=== PATIENT | male | born 1940 | race Caucasian/White ===

== ENCOUNTER 2019-02-25 13:11 | Outpatient (CLI) | payer MEDICARE | END 2019-02-25 23:59 | disposition home or self-care (01) | LOC: RAD 13:11 | PROVIDERS: ATTEND Otolaryngology Plastic Surgery within the Head & Neck | DX: R13.12 Dysphagia, oropharyngeal phase (principal); R49.0 Dysphonia; K21.9 Gastro-esophageal reflux disease without esophagitis; Z85.89 Personal history of malignant neoplasm of other organs and systems; Z87.891 Personal history of nicotine dependence; Z79.899 Other long term (current) drug therapy | CPT/HCPCS: 74230 ==

== ENCOUNTER 2023-01-19 21:12 | Emergency (ER) | payer MEDICARE ==
[~2023-01-19] VITALS: Ht 188 cm; Wt 81.8 kg
[2023-01-19 21:51] VITALS: TEMP 98.1
[2023-01-19 22:44] LABS: BASOPHILS # (AUTO) 0.1 X10'3 (0-0.2); BASOPHILS % (AUTO) 0.9 % (0-1); EOSINOPHILS # (AUTO) 0.1 X10'3 (0-0.9); EOSINOPHILS % (AUTO) 0.8 % (0-6); HEMATOCRIT 33.9 % (42.0-52.0); HEMOGLOBIN 11.5 g/dl (14.0-17.9); LYMPHOCYTES # (AUTO) 0.6 X10'3 (1.1-4.8); LYMPHOCYTES % (AUTO) 6.2 % (21-51); MEAN CORPUSCULAR HEMOGLOBIN 31.5 PG (27.0-31.0); MEAN CORPUSCULAR VOLUME 92.5 FL (78-98); MEAN PLATELET VOLUME 9.1 FL (7.4-10.4); MONOCYTES # (AUTO) 0.5 X10'3 (0-0.9); MONOCYTES % (AUTO) 5.6 % (2-12); NEUTROPHILS % (AUTO) 86.5 % (42-75); PLATELET COUNT 164 X10'3 (140-440); RED BLOOD COUNT 3.67 X10'6 (4.70-6.10); RED CELL DISTRIBUTION WIDTH 13.5 % (11.5-14.5); WHITE BLOOD COUNT 9.3 X10'3 (4.5-11.0)
[2023-01-19 22:57] LABS: ALANINE AMINOTRANSFERASE 20 U/L (12-78); ALBUMIN 2.9 G/DL (3.4-5.0); ALBUMIN/GLOBULIN RATIO 0.9 (1.1-1.5); ALKALINE PHOSPHATASE 68 IU/L (46-116); ANION GAP 8 (8-16); ASPARTATE AMINO TRANSFERASE 50 U/L (10-37); BILIRUBIN,TOTAL 1.2 MG/DL (0.1-1.0); BLOOD UREA NITROGEN 51 MG/DL (7-18); BUN/CREATININE RATIO 36.2 (10.0-20.0); CALCIUM 8.2 MG/DL (8.5-10.1); CHLORIDE 94 MMOL/L (99-107); CREATININE 1.41 MG/DL (0.60-1.10); GLUCOSE 85 MG/DL (70-104); POTASSIUM 4.5 MMOL/L (3.5-5.1); SODIUM 129 MMOL/L (135-145); TOTAL CARBON DIOXIDE 27.4 MMOL/L (24-32); TOTAL PROTEIN 6.1 G/DL (6.4-8.2); eCRCL 46 ML/MIN; eGFR 48 ML/MIN
[2023-01-19 23:05] LABS: PRO BRAIN NATRIURETIC PEPTIDE 1244 PG/ML (0-450)
--- NOTE | 2023-01-20 02:23 | NUR ---
PTS SUKI CALLED, ALL QUESTIONS ANSWERED AND UPDATE PROVIDED. HER PHONE NUMBER FOR UPDATES [phone]
[2023-01-20] MEDS ORDERED: polyethylene glycol 3350 17gm powd pack PO SCH (03:15)
[2023-01-20 03:42] VITALS: BP 155/72; PULSE 70; RESP 16; O2SAT 99
== END 2023-01-20 03:45 | disposition home or self-care (01) ==
LOC: ER 21:13
DX: R06.02 Shortness of breath (principal)
CPT/HCPCS: 36415; 71045; 80053; 83880; 84484; 85025; 93005; 99285

== ENCOUNTER 2023-08-07 16:40 | Emergency (ER) | payer MEDICARE ==
[~2023-08-07] VITALS: Ht 185.4 cm; Wt 73.6 kg
[2023-08-07 17:09] VITALS: BP 139/46; PULSE 91; RESP 18; TEMP 98; O2SAT 98
[2023-08-07] MEDS ORDERED: AMO250L PO (17:32)
[2023-08-07] MEDS ORDERED: CIPR10DR RIGHT EAR (17:32)
== END 2023-08-07 17:44 | disposition home or self-care (01) ==
LOC: ER 16:41
DX: H60.91 Unspecified otitis externa, right ear (principal); I10 Essential (primary) hypertension; I25.10 Atherosclerotic heart disease of native coronary artery without angina pectoris; G89.29 Other chronic pain; Z85.9 Personal history of malignant neoplasm, unspecified
CPT/HCPCS: 99283

== ENCOUNTER 2024-02-17 10:42 | Outpatient (CLI) | payer MEDICARE ==
[2024-02-17 11:12] LABS: BASOPHILS % (AUTO) 0.5 % (0-1); EOSINOPHILS # (AUTO) 0.1 X10'3 (0-0.9); EOSINOPHILS % (AUTO) 1.8 % (0-6); HEMATOCRIT 35.5 % (42.0-52.0); HEMOGLOBIN 12.1 g/dl (14.0-17.9); LYMPHOCYTES # (AUTO) 0.6 X10'3 (1.1-4.8); LYMPHOCYTES % (AUTO) 14.2 % (21-51); MEAN CORPUSCULAR HEMOGLOBIN 34.4 PG (27.0-31.0); MEAN CORPUSCULAR VOLUME 101.1 FL (78-98); MEAN PLATELET VOLUME 9.5 FL (7.4-10.4); MONOCYTES # (AUTO) 0.3 X10'3 (0-0.9); MONOCYTES % (AUTO) 7.3 % (2-12); NEUTROPHILS # (AUTO) 3.4 X10'3 (1.8-7.7); NEUTROPHILS % (AUTO) 76.2 % (42-75); PLATELET COUNT 100 X10'3 (140-440); RED BLOOD COUNT 3.51 X10'6 (4.70-6.10); RED CELL DISTRIBUTION WIDTH 14.5 % (11.5-14.5); WHITE BLOOD COUNT 4.4 X10'3 (4.5-11.0)
[2024-02-17 11:25] LABS: APTT 28 SECONDS (22-32); INR 1.1 INR; PROTHROMBIN TIME 11.4 SECONDS (9.0-12.0)
[2024-02-17 11:33] LABS: ALANINE AMINOTRANSFERASE 16 U/L (12-78); ALBUMIN 3.9 G/DL (3.4-5.0); ALBUMIN/GLOBULIN RATIO 1.1 (1.1-1.5); ALKALINE PHOSPHATASE 68 IU/L (46-116); ANION GAP 4 (8-16); ASPARTATE AMINO TRANSFERASE 20 U/L (10-37); BILIRUBIN,TOTAL 1.1 MG/DL (0.1-1.0); BLOOD UREA NITROGEN 81 MG/DL (7-18); BUN/CREATININE RATIO 54.4 (10.0-20.0); CALCIUM 9.5 MG/DL (8.5-10.1); CHLORIDE 93 MMOL/L (99-107); CREATININE 1.49 MG/DL (0.60-1.10); GLUCOSE 127 MG/DL (70-104); POTASSIUM 3.9 MMOL/L (3.5-5.1); PRO BRAIN NATRIURETIC PEPTIDE 7816 PG/ML (0-450); SODIUM 133 MMOL/L (135-145); TOTAL CARBON DIOXIDE 35.7 MMOL/L (24-32); TOTAL PROTEIN 7.4 G/DL (6.4-8.2); eGFR 45 ML/MIN
[2024-02-17] MEDS ORDERED: IODIXANOL 320 MG/ML INFUS..BTL 100ML IV ONE (12:02)
[2024-03-23] MEDS ORDERED: LEVO125C4 GT (11:20)
[2024-03-23] MEDS ORDERED: FURO40TA4 GT (11:20)
[2024-03-23] MEDS ORDERED: LIOT5TAB10 GT (11:20)
== END 2024-02-17 23:59 | disposition home or self-care (01) ==
LOC: RAD 10:42
PROVIDERS: ATTEND Internal Medicine Cardiovascular Disease
DX: I35.0 Nonrheumatic aortic (valve) stenosis (principal); R06.02 Shortness of breath; I65.29 Occlusion and stenosis of unspecified carotid artery; I51.7 Cardiomegaly; M47.815 Spondylosis without myelopathy or radiculopathy, thoracolumbar region; I70.0 Atherosclerosis of aorta; M41.85 Other forms of scoliosis, thoracolumbar region; Z90.49 Acquired absence of other specified parts of digestive tract; Z95.1 Presence of aortocoronary bypass graft; K56.41 Fecal impaction
CPT/HCPCS: 36415; 71275; 74174; 75572; 80053; 83880; 85025; 85610; 85730; Q9967

== ENCOUNTER 2024-03-26 08:37 | Inpatient (IN) | payer MEDICARE ==
[2024-03-23 11:44] LABS: BASOPHILS % (AUTO) 0.7 % (0-1); EOSINOPHILS # (AUTO) 0.1 X10'3 (0-0.9); EOSINOPHILS % (AUTO) 1.6 % (0-6); LYMPHOCYTES # (AUTO) 0.4 X10'3 (1.1-4.8); LYMPHOCYTES % (AUTO) 11.4 % (21-51); MEAN CORPUSCULAR HEMOGLOBIN 35.5 PG (27.0-31.0); MEAN CORPUSCULAR HGB CONC 35.5 g/dL (33.0-36.5); MONOCYTES # (AUTO) 0.3 X10'3 (0-0.9); MONOCYTES % (AUTO) 8.2 % (2-12); NEUTROPHILS % (AUTO) 78.1 % (42-75); PRE OP HEMATOCRIT 33.2 % (42.0-52.0); PRE OP HEMOGLOBIN 11.8 g/dL (14.0-17.9); PRE OP PLATELET COUNT 118 X10'3 (140-440); PRE OP WHITE BLOOD COUNT 3.9 10'3 (4.8-10.8); RED BLOOD COUNT 3.32 X10'6 (4.70-6.10)
[2024-03-23 12:05] LABS: PRE OP INR 1.1 INR; PRE OP PROTIME 11.4 SECONDS (9.0-12.0)
[2024-03-23 12:09] LABS: ALBUMIN/GLOBULIN RATIO 1.1 (1.1-1.5); ALKALINE PHOSPHATASE 71 IU/L (46-116); BLOOD UREA NITROGEN 76 MG/DL (7-18); BUN/CREATININE RATIO 55.9 (10.0-20.0); CALCIUM 9.5 MG/DL (8.5-10.1); CHLORIDE 90 MMOL/L (99-107); CREATININE 1.36 MG/DL (0.60-1.10); PRE OP ALT 19 U/L (30-65); PRE OP ANION GAP 6 (8-16); PRE OP AST 26 U/L (10-37); PRE OP BILIRUB, TOTAL 1.1 MG/DL (0.0-1.0); PRE OP GLUCOSE 95 MG/DL (70-104); PRE OP POTASSIUM 3.8 MMOL/L (3.4-5.1); PRO BRAIN NATRIURETIC PEPTIDE 12850 PG/ML (0-450); TOTAL CARBON DIOXIDE 33.7 MMOL/L (24-32); TOTAL PROTEIN 7.5 G/DL (6.4-8.2); eGFR 50 ML/MIN
[2024-03-23 12:22] LABS: PRE OP SODIUM 130 MMOL/L (135-145)
[2024-03-23 14:54] LABS: BILIRUBIN,URINE NEGATIVE (Neg); CLARITY,URINE CLOUDY (Clear); COLOR,URINE YELLOW (Yellow); GLUCOSE, URINE NEGATIVE (Neg); KETONES,URINE NEGATIVE (Neg); LEUKOCYTE ESTERASE ,URINE MODERATE (Neg); NITRITES, URINE NEGATIVE (Neg); OCCULT BLOOD,URINE TRACE-INTACT (Neg); PH,URINE 6.5 (4.8-8.0); PROTEIN,URINE 30 mg/dl (Neg); UROBILINOGEN,URINE 0.2 E.U/dL (0.2-1.0)
[2024-03-23 15:02] LABS: UA COLLECTION TYPE NON-SPECIFIED
[2024-03-23 15:06] LABS: SQUAMOUS EPITHELIAL CELL,UR FEW /LPF (FEW); WBC CLUMPS,URINE FEW /HPF (NEGATIVE)
[2024-03-23 15:07] LABS: BACTERIA,URINE 3+ /HPF (Neg); WBC,URINE TNTC /HPF (0-4)
[~2024-03-26] VITALS: Ht 188 cm; Wt 76.0 kg
[2024-03-26] VITALS (19 sets, daily range): BP systolic 95–173; BP diastolic 58–102; PULSE 66–88; RESP 9–18; TEMP 97.3–98.5; O2SAT 93–100
[2024-03-26] MEDS: ringers solution, lacted 1,000 ML IV SCH (05:30)
[~2024-03-26 08:37] MED LIST: FURO40TA4 GT; LEVO125C4 GT; LIOT5TAB10 GT; ondansetron/PF 4mg/2ml inj IV PRN; protamine sulfate 10mg/ml inj. ONE
[2024-03-26] MEDS: nitroPRUSSIDE (NIPRIDE) (200MCG/ML) 100ML Drip IV SCH (09:57)
[2024-03-26] MEDS: ceFAZolin 2gm in dextrose, iso 50 ML IV ONE (09:57)
[2024-03-26] MEDS: VANCOMYCIN 1,500MG inj. 1,500 MG in normal saline 500ml IV soln 300 ML IV ONE (09:58)
[2024-03-26] MEDS: aspirin 325mg tablet PEG ONE (09:58)
[2024-03-26] MEDS: famotidine 20mg tablet PEG ONE (09:58)
[2024-03-26] MEDS: phenylephrine inj 50 MG in normal saline 250ml IV solN IV SCH (09:58)
[2024-03-26 10:20] LABS: ISTAT CREATININE 1.4 mg/dL (0.8-1.3); ISTAT HGB 11.2 g/dl (14.0-17.9); ISTAT IONIZED CALCIUM 1.25 mmol/L (1.03-1.32); ISTAT K 3.9 mmol/L (3.5-5.1); POC BUN/CREATININE RATIO 49.3 (5.4-32.0)
[2024-03-26] MEDS ORDERED: heparin 1,000 UNITS/NS 500ml 1,500 ML ONE (11:32)
[2024-03-26] MEDS ORDERED: iohexol 350MG/ML 100ml bottle IV ONE (11:32)
[2024-03-26] MEDS ORDERED: LIDOcaine 1% (10mg/ml) 2ml vial ONE (11:34)
[2024-03-26] MEDS ORDERED: sevoflurane 250ml liquid IH ONE (11:58)
[2024-03-26] MEDS ORDERED: fentaNYL/PF 50MCG/1 ML 2ML syringe ONE (12:06)
[2024-03-26] MEDS: protamine sulf. 10mg/ml inj. IV ONE (12:18)
[2024-03-26] MEDS ORDERED: heparin 1,000unit/ml 10ml vial 10 ML ONE (12:44)
[2024-03-26] MEDS ORDERED: propofol inj 20 ML IV ONE (12:44)
[2024-03-26] MEDS ORDERED: potassium Cl 20mEq/100mL bag 100 ML IV PRN (13:20)
[2024-03-26] MEDS ORDERED: potassium Cl 20 mEq SR tablet PO PRN (13:20)
[2024-03-26] MEDS ORDERED: potassium Cl 40MEQ/1/2NS 520ml 520 ML IV PRN (13:20)
[2024-03-26] MEDS ORDERED: potassium CL 10mEq/100ml bag 100 ML IV PRN (13:20)
[2024-03-26] MEDS ORDERED: HYDROcodone/acetaminophen 5mg/325mg tablet PO PRN (13:20)
[2024-03-26] MEDS ORDERED: acetaminophen 325mg tablet PO PRN (13:20)
[2024-03-26] MEDS ORDERED: pantoprazole 40mg Tablet.DR PO PRN (13:20)
[2024-03-26] MEDS ORDERED: labetalol 20mg/4ml (5mg/ml) syringe IV PRN (13:20)
[2024-03-26] MEDS ORDERED: ALPRAZolam 0.25mg tablet PO PRN (13:20)
[2024-03-26] MEDS ORDERED: proCHLORperazine 10 MG/2 ml inj IV PRN (13:20)
[2024-03-26] MEDS ORDERED: docusate sod 100mg capsule PO PRN (13:20)
[2024-03-26] MEDS ORDERED: potassium Cl 40MEQ/270ML bag 250 ML IV PRN (13:20)
[2024-03-26] MEDS ORDERED: ondansetron/PF 4mg/2ml inj IV PRN (13:20)
[2024-03-26] MEDS ORDERED: diphenhydrAMINE 25mg capsule PO PRN (13:20)
[2024-03-26] MEDS ORDERED: magnesium sulf-water 4G/100mL 100 ML IV PRN (13:20)
[2024-03-26] MEDS ORDERED: magnesium sulf-water 2g/50mL 50 ML IV PRN (13:20)
[2024-03-26] MEDS ORDERED: hydrALAZINE 20mg/ml inj. IV PRN (14:05)
[2024-03-26] MEDS ORDERED: labetalol 5mg/ml 20ml inj. IV PRN (14:05)
[2024-03-26] MEDS: hydrALAZINE 20mg/ml inj. IV PRN (14:05)
[2024-03-26] MEDS: ceFAZolin 1GM/D5W- ADD-VANTAGE 50 ML IV SCH (16:51)
[2024-03-26] MEDS: sod chloride 0.9% 10ml flush syringe IV SCH (16:51)
[2024-03-26] MEDS: normal saline 1000ml 1,000 ML IV SCH (16:52)
[2024-03-26] MEDS: VANCOMYCIN 1GM 200ML H20 (PEG) 200 ML IV SCH (21:40)
[2024-03-27 02:00] VITALS: BP 154/84; PULSE 77; RESP 14; TEMP 97.7; O2SAT 96
[2024-03-27 07:57] LABS: ALANINE AMINOTRANSFERASE 13 U/L (12-78); ALKALINE PHOSPHATASE 56 IU/L (46-116); ANION GAP 1 (8-16); ASPARTATE AMINO TRANSFERASE 21 U/L (10-37); BILIRUBIN,TOTAL 0.9 MG/DL (0.1-1.0); BLOOD UREA NITROGEN 54 MG/DL (7-18); BUN/CREATININE RATIO 42.9 (10.0-20.0); CALCIUM 8.3 MG/DL (8.5-10.1); CHLORIDE 94 MMOL/L (99-107); CREATININE 1.26 MG/DL (0.60-1.10); GLUCOSE 83 MG/DL (70-104); PRO BRAIN NATRIURETIC PEPTIDE 13203 PG/ML (0-450); SODIUM 129 MMOL/L (135-145); TOTAL CARBON DIOXIDE 33.8 MMOL/L (24-32); eCRCL 46 ML/MIN; eGFR 54 ML/MIN
[2024-03-27 08:00] VITALS: RESP 16; O2SAT 94
[2024-03-27 08:10] LABS: BASOPHILS % (AUTO) 0.7 % (0-1); EOSINOPHILS # (AUTO) 0.1 X10'3 (0-0.9); EOSINOPHILS % (AUTO) 2.7 % (0-6); HEMATOCRIT 26.5 % (42.0-52.0); HEMOGLOBIN 9.5 g/dl (14.0-17.9); LYMPHOCYTES # (AUTO) 0.3 X10'3 (1.1-4.8); LYMPHOCYTES % (AUTO) 6.5 % (21-51); MEAN CORPUSCULAR HEMOGLOBIN 35.8 PG (27.0-31.0); MEAN CORPUSCULAR HGB CONC 35.8 g/dL (33.0-36.5); MEAN PLATELET VOLUME 8.9 FL (7.4-10.4); MONOCYTES # (AUTO) 0.4 X10'3 (0-0.9); MONOCYTES % (AUTO) 8.5 % (2-12); NEUTROPHILS # (AUTO) 3.8 X10'3 (1.8-7.7); NEUTROPHILS % (AUTO) 81.6 % (42-75); PLATELET COUNT 82 X10'3 (140-440); RED BLOOD COUNT 2.65 X10'6 (4.70-6.10); RED CELL DISTRIBUTION WIDTH 14.2 % (11.5-14.5); WHITE BLOOD COUNT 4.7 X10'3 (4.5-11.0)
[2024-03-27] MEDS: aspirin 81mg tab.chew PO SCH (09:04)
[2024-03-27] MEDS ORDERED: ASPI81TA53 PO (15:12)
== END 2024-03-27 16:52 | disposition home or self-care (01) | DRG 266 ==
LOC: PAS IN 08:37 → PCU 3S 15:30
PROVIDERS: ADMIT Internal Medicine Cardiovascular Disease; ATTEND Internal Medicine Cardiovascular Disease
PROC: B41F1ZZ Fluoroscopy of Right Lower Extremity Arteries using Low Osmolar Contrast (ICD-10-PCS; 2024-03-26)
PROC: B41G1ZZ Fluoroscopy of Left Lower Extremity Arteries using Low Osmolar Contrast (ICD-10-PCS; 2024-03-26)
PROC: 02RF38Z Replacement of Aortic Valve with Zooplastic Tissue, Percutaneous Approach (ICD-10-PCS; principal; 2024-03-26 11:58)
DX: I35.2 Nonrheumatic aortic (valve) stenosis with insufficiency (principal); Z00.6 Encounter for examination for normal comparison and control in clinical research program; I50.33 Acute on chronic diastolic (congestive) heart failure; I11.0 Hypertensive heart disease with heart failure; Z88.8 Allergy status to other drugs, medicaments and biological substances
CPT/HCPCS: 33361; 36415; 71045; 71046; 76937; 80047; 80053; 81001; 83735; 83880; 84439; 84443; 85025; 85347; 85610; 85730; 86885; 86900; 86901; 86920; 87077; 87081; 87088; 87186; 93005; 93308; A4615; A4618; A6213; A6250; A6258; A6449; A6590; C1756; C1760; C1769; C1894; G0378; J0360; J0690; J1644; J2003; J2371; J2704; J2720; J3010; J3370; J3372; J3490; J7030; J7040; J7050; J7120; Q9967

== ENCOUNTER 2024-04-13 15:13 | Outpatient (CLI) | payer MEDICARE ==
[~2024-04-13 15:13] MED LIST changes: +ASPI81TA53 PO; -ondansetron/PF 4mg/2ml inj IV PRN; -protamine sulfate 10mg/ml inj. ONE
[2024-04-13 15:53] LABS: BASOPHILS % (AUTO) 0.5 % (0-1); EOSINOPHILS # (AUTO) 0.1 X10'3 (0-0.9); EOSINOPHILS % (AUTO) 1.4 % (0-6); HEMOGLOBIN 9.9 g/dl (14.0-17.9); LYMPHOCYTES # (AUTO) 0.5 X10'3 (1.1-4.8); LYMPHOCYTES % (AUTO) 15.6 % (21-51); MEAN CORPUSCULAR HEMOGLOBIN 36.1 PG (27.0-31.0); MEAN CORPUSCULAR HGB CONC 35.5 g/dL (33.0-36.5); MEAN CORPUSCULAR VOLUME 101.7 FL (78-98); MEAN PLATELET VOLUME 8.7 FL (7.4-10.4); MONOCYTES # (AUTO) 0.3 X10'3 (0-0.9); MONOCYTES % (AUTO) 8.1 % (2-12); NEUTROPHILS # (AUTO) 2.6 X10'3 (1.8-7.7); NEUTROPHILS % (AUTO) 74.4 % (42-75); PLATELET COUNT 98 X10'3 (140-440); RED BLOOD COUNT 2.75 X10'6 (4.70-6.10); RED CELL DISTRIBUTION WIDTH 15.2 % (11.5-14.5); WHITE BLOOD COUNT 3.5 X10'3 (4.5-11.0)
[2024-04-13 16:06] LABS: APTT 28 SECONDS (22-32); INR 1.1 INR; PROTHROMBIN TIME 11.8 SECONDS (9.0-12.0)
[2024-04-13 16:17] LABS: ALANINE AMINOTRANSFERASE 11 U/L (12-78); ALBUMIN 3.9 G/DL (3.4-5.0); ALKALINE PHOSPHATASE 84 IU/L (46-116); ANION GAP 5 (8-16); ASPARTATE AMINO TRANSFERASE 24 U/L (10-37); BLOOD UREA NITROGEN 55 MG/DL (7-18); CALCIUM 8.8 MG/DL (8.5-10.1); CHLORIDE 96 MMOL/L (99-107); CREATININE 1.28 MG/DL (0.60-1.10); FREE T4 (FREE THYROXINE) 0.89 NG/DL (0.73-1.40); GLUCOSE 106 MG/DL (70-104); POTASSIUM 4.2 MMOL/L (3.5-5.1); SODIUM 134 MMOL/L (135-145); THYROID STIMULATING HORMONE 24.82 ulU/ml (0.34-4.50); TOTAL CARBON DIOXIDE 32.6 MMOL/L (24-32); TOTAL PROTEIN 7.7 G/DL (6.4-8.2); eGFR 53 ML/MIN
== END 2024-04-13 23:59 | disposition home or self-care (01) ==
LOC: LAB 15:13
PROVIDERS: ATTEND Internal Medicine Cardiovascular Disease
DX: I50.9 Heart failure, unspecified (principal); N28.9 Disorder of kidney and ureter, unspecified; E87.1 Hypo-osmolality and hyponatremia; R79.1 Abnormal coagulation profile; D64.9 Anemia, unspecified; D61.818 Other pancytopenia; E63.9 Nutritional deficiency, unspecified
CPT/HCPCS: 36415; 80053; 84439; 84443; 85025; 85610; 85730

== ENCOUNTER 2024-05-11 23:50 | Inpatient (IN) | payer MEDICARE ==
[~2024-05-11] VITALS: Ht 185.4 cm; Wt 78.5 kg
[2024-05-12 00:24] LABS: EOSINOPHILS # (AUTO) 0.1 X10'3 (0-0.9); EOSINOPHILS % (AUTO) 1.5 % (0-6); HEMOGLOBIN 11.7 g/dl (14.0-17.9); LYMPHOCYTES # (AUTO) 0.9 X10'3 (1.1-4.8); MEAN CORPUSCULAR HGB CONC 35.5 g/dL (33.0-36.5); MEAN CORPUSCULAR VOLUME 101.6 FL (78-98); MONOCYTES # (AUTO) 0.3 X10'3 (0-0.9); NEUTROPHILS # (AUTO) 3.7 X10'3 (1.8-7.7); RED CELL DISTRIBUTION WIDTH 13.9 % (11.5-14.5)
[2024-05-12 00:26] LABS: BASOPHILS % (AUTO) 0.3 % (0-1); HEMATOCRIT 33.1 % (42.0-52.0); LYMPHOCYTES % (AUTO) 17.9 % (21-51); MEAN PLATELET VOLUME 9.5 FL (7.4-10.4); MONOCYTES % (AUTO) 6.1 % (2-12); NEUTROPHILS % (AUTO) 74.2 % (42-75); PLATELET COUNT 75 X10'3 (140-440); RED BLOOD COUNT 3.25 X10'6 (4.70-6.10)
[2024-05-12 00:41] LABS: ALANINE AMINOTRANSFERASE 17 U/L (12-78); ALBUMIN 3.9 G/DL (3.4-5.0); ALKALINE PHOSPHATASE 98 IU/L (46-116); ANION GAP 8 (8-16); ASPARTATE AMINO TRANSFERASE 26 U/L (10-37); BILIRUBIN,TOTAL 0.9 MG/DL (0.1-1.0); BLOOD UREA NITROGEN 56 MG/DL (7-18); BUN/CREATININE RATIO 44.4 (10.0-20.0); CALCIUM 9.4 MG/DL (8.5-10.1); CHLORIDE 93 MMOL/L (99-107); CREATININE 1.26 MG/DL (0.60-1.10); GLUCOSE 111 MG/DL (70-104); POTASSIUM 4.5 MMOL/L (3.5-5.1); SODIUM 128 MMOL/L (135-145); TOTAL CARBON DIOXIDE 27.1 MMOL/L (24-32); TOTAL PROTEIN 7.7 G/DL (6.4-8.2); eCRCL 45 ML/MIN; eGFR 54 ML/MIN
[2024-05-12 00:48] LABS: PRO BRAIN NATRIURETIC PEPTIDE 5347 PG/ML (0-450)
[2024-05-12] MEDS ORDERED: NO HOME MEDS (01:15)
[2024-05-12] MEDS: aspirin 325mg tablet PO ONE (05:04)
[2024-05-12 05:14] LABS: FREE T4 (FREE THYROXINE) 1.01 NG/DL (0.73-1.40); THYROID STIMULATING HORMONE 5.41 ulU/ml (0.34-4.50)
[2024-05-12] MEDS ORDERED: potassium Cl 20 mEq SR tablet PO PRN ×2 (06:10)
[2024-05-12] MEDS ORDERED: ondansetron/PF 4mg/2ml inj IV PRN (06:10)
[2024-05-12] MEDS ORDERED: magnesium Cl slow-release 64mg tablet PO PRN (06:10)
[2024-05-12] MEDS ORDERED: magnesium hydroxide 30ml (MOM) UD suspension PO PRN (06:10)
[2024-05-12] MEDS ORDERED: acetaminophen 325mg tablet PO PRN (06:10)
[2024-05-12] MEDS ORDERED: magnesium sulf-water 4G/100mL 100 ML IV PRN (06:10)
[2024-05-12] MEDS ORDERED: potassium Cl 40MEQ/1/2NS 520ml 520 ML IV PRN (06:10)
[2024-05-12] MEDS ORDERED: mag hydrox/Alum hydrox/simeth 30ml oral suspension PO PRN (06:10)
[2024-05-12] MEDS ORDERED: magnesium sulf-water 2g/50mL 50 ML IV PRN (06:10)
[2024-05-12] MEDS: normal saline 1000ml 1,000 ML IV SCH (06:25)
[2024-05-12 07:58] LABS: MAGNESIUM 1.9 MG/DL (1.5-2.4); POTASSIUM 4.2 MMOL/L (3.5-5.1)
[2024-05-12] MEDS: K and/or MAG REPLACEMENT MC SCH (08:00)
[2024-05-12] MEDS: docusate sod 100mg capsule PO SCH (08:00)
[2024-05-12] MEDS: cyanocobalamin 500mcg tablet PO SCH (08:56)
[2024-05-12] MEDS: liothyronine sod 5mcg tablet PO SCH (08:56)
[2024-05-12] MEDS: levoTHYROXINE 112mcg tablet PO SCH (08:56)
[2024-05-12] MEDS: folic acid 1mg tablet PO ONE (08:56)
[2024-05-12] MEDS: levoTHYROXINE 25mcg tablet PO SCH (08:56)
[2024-05-12] MEDS: carVEDilol 3.125mg tablet PO SCH (11:55)
[2024-05-12 18:00] VITALS: BP_SYST 135; BP_SYST 91; BP_DIAS 64; BP_DIAS 86; PULSE 74; PULSE 77; RESP 14; TEMP 97.6; TEMP 97.9; O2SAT 95; O2SAT 97
[2024-05-12 20:00] VITALS: RESP 18; O2SAT 96
[2024-05-12 22:00] VITALS: BP 130/84; PULSE 81; RESP 16; TEMP 98; O2SAT 95
[2024-05-13 02:00] VITALS: BP 130/80; PULSE 74; RESP 16; TEMP 97; O2SAT 97
[2024-05-13 06:54] LABS: BASOPHILS % (AUTO) 0.8 % (0-1); EOSINOPHILS # (AUTO) 0.1 X10'3 (0-0.9); HEMATOCRIT 29.9 % (42.0-52.0); HEMOGLOBIN 10.6 g/dl (14.0-17.9); LYMPHOCYTES # (AUTO) 0.6 X10'3 (1.1-4.8); LYMPHOCYTES % (AUTO) 18.8 % (21-51); MEAN CORPUSCULAR HEMOGLOBIN 36.4 PG (27.0-31.0); MEAN CORPUSCULAR HGB CONC 35.6 g/dL (33.0-36.5); MEAN CORPUSCULAR VOLUME 102.5 FL (78-98); MEAN PLATELET VOLUME 9.2 FL (7.4-10.4); MONOCYTES # (AUTO) 0.3 X10'3 (0-0.9); MONOCYTES % (AUTO) 11.1 % (2-12); NEUTROPHILS % (AUTO) 67.3 % (42-75); PLATELET COUNT 85 X10'3 (140-440); RED BLOOD COUNT 2.91 X10'6 (4.70-6.10); RED CELL DISTRIBUTION WIDTH 13.7 % (11.5-14.5)
[2024-05-13 07:00] VITALS: BP 131/79; PULSE 73; RESP 18; TEMP 97.8; O2SAT 97
[2024-05-13 07:22] LABS: ALANINE AMINOTRANSFERASE 12 U/L (12-78); ALBUMIN 2.8 G/DL (3.4-5.0); ALBUMIN/GLOBULIN RATIO 0.9 (1.1-1.5); ALKALINE PHOSPHATASE 70 IU/L (46-116); ANION GAP 6 (8-16); ASPARTATE AMINO TRANSFERASE 24 U/L (10-37); BILIRUBIN,TOTAL 0.6 MG/DL (0.1-1.0); BLOOD UREA NITROGEN 42 MG/DL (7-18); BUN/CREATININE RATIO 37.8 (10.0-20.0); CALCIUM 8.8 MG/DL (8.5-10.1); CHLORIDE 98 MMOL/L (99-107); CREATININE 1.11 MG/DL (0.60-1.10); GLUCOSE 92 MG/DL (70-104); POTASSIUM 4.5 MMOL/L (3.5-5.1); SODIUM 133 MMOL/L (135-145); TOTAL CARBON DIOXIDE 29.2 MMOL/L (24-32); eCRCL 51 ML/MIN; eGFR 63 ML/MIN
[2024-05-13 08:00] VITALS: RESP 18; O2SAT 97
[2024-05-13] MEDS ORDERED: carVEDilol 3.125mg tablet PEG SCH (08:21)
[2024-05-13] MEDS ORDERED: acetaminophen 325mg tablet PEG PRN (08:21)
[2024-05-13] MEDS ORDERED: cyanocobalamin 500mcg tablet PEG SCH (08:21)
[2024-05-13 11:00] VITALS: BP 128/81; PULSE 79; RESP 18; TEMP 96.8; O2SAT 98
[2024-05-13] MEDS: hydrALAZINE 20mg/ml inj. IV PRN (11:48)
[2024-05-13] MEDS ORDERED: CARV-164 PEG (12:27)
[2024-05-13] MEDS ORDERED: piperacillin/tazo 3.375gm/50ml 50 ML IV SCH (16:00)
[2024-05-13] MEDS ORDERED: vancomycin/NS 1 GM ADD-VANTAGE 250 ML IV SCH (16:00)
[2024-05-16] MEDS ORDERED: VANCOMYCIN LEVEL IV ONE (15:30)
== END 2024-05-13 15:50 | disposition home health service (06) | DRG 280 ==
LOC: ER 23:51 → ED HOLD 05-12 06:14 → PCU 3S 05-12 18:07
PROVIDERS: ADMIT Internal Medicine Sleep Medicine; ATTEND Family Medicine
DX: I16.1 Hypertensive emergency (principal); G93.41 Metabolic encephalopathy; I21.A1 Myocardial infarction type 2; N17.0 Acute kidney failure with tubular necrosis; N39.0 Urinary tract infection, site not specified; D50.8 Other iron deficiency anemias; N18.9 Chronic kidney disease, unspecified; E03.9 Hypothyroidism, unspecified; I12.9 Hypertensive chronic kidney disease with stage 1 through stage 4 chronic kidney disease, or unspecified chronic kidney disease; I25.10 Atherosclerotic heart disease of native coronary artery without angina pectoris; N40.0 Benign prostatic hyperplasia without lower urinary tract symptoms; Z88.8 Allergy status to other drugs, medicaments and biological substances
CPT/HCPCS: 36415; 71045; 80053; 83735; 83880; 83930; 84132; 84439; 84443; 84484; 85025; 85379; 87081; 93005; 93308; 93970; 99285; A4349; A6213; A6402; A6590; G0378; J0360; J7030

== ENCOUNTER 2024-06-09 19:38 | Inpatient (IN) | payer MEDICARE ==
[~2024-06-09] VITALS: Ht 188 cm; Wt 77.0 kg
[~2024-06-09 19:38] MED LIST changes: -ASPI81TA53 PO; +CARV-164 PEG; -FURO40TA4 GT; -LEVO125C4 GT; -LIOT5TAB10 GT; +NO HOME MEDS
[2024-06-09 20:01] LABS: BASOPHILS % (AUTO) 0.4 % (0-1); EOSINOPHILS # (AUTO) 0.1 X10'3 (0-0.9); EOSINOPHILS % (AUTO) 0.8 % (0-6); HEMATOCRIT 34.2 % (42.0-52.0); HEMOGLOBIN 11.9 g/dl (14.0-17.9); LYMPHOCYTES # (AUTO) 0.6 X10'3 (1.1-4.8); LYMPHOCYTES % (AUTO) 8.3 % (21-51); MEAN CORPUSCULAR HEMOGLOBIN 34.9 PG (27.0-31.0); MEAN CORPUSCULAR HGB CONC 34.8 g/dL (33.0-36.5); MEAN CORPUSCULAR VOLUME 100.3 FL (78-98); MEAN PLATELET VOLUME 8.3 FL (7.4-10.4); MONOCYTES # (AUTO) 0.3 X10'3 (0-0.9); MONOCYTES % (AUTO) 3.9 % (2-12); NEUTROPHILS % (AUTO) 86.6 % (42-75); PLATELET COUNT 101 X10'3 (140-440); RED BLOOD COUNT 3.41 X10'6 (4.70-6.10); RED CELL DISTRIBUTION WIDTH 12.9 % (11.5-14.5); WHITE BLOOD COUNT 6.9 X10'3 (4.5-11.0)
[2024-06-09] MEDS: CefTRIAXone 2gm/D5W 50ml BAG 50 ML IV ONE (20:14)
[2024-06-09] MEDS: normal saline 1000ML IV soln IVB ONE (20:16)
[2024-06-09 20:20] LABS: ALANINE AMINOTRANSFERASE 16 U/L (12-78); ALBUMIN 3.6 G/DL (3.4-5.0); ALBUMIN/GLOBULIN RATIO 0.9 (1.1-1.5); ALKALINE PHOSPHATASE 83 IU/L (46-116); ANION GAP 5 (8-16); ASPARTATE AMINO TRANSFERASE 32 U/L (10-37); BILIRUBIN,TOTAL 0.6 MG/DL (0.1-1.0); BLOOD UREA NITROGEN 49 MG/DL (7-18); BUN/CREATININE RATIO 37.4 (10.0-20.0); CALCIUM 9.3 MG/DL (8.5-10.1); CHLORIDE 93 MMOL/L (99-107); CREATININE 1.31 MG/DL (0.60-1.10); GLUCOSE 95 MG/DL (70-104); POTASSIUM 4.4 MMOL/L (3.5-5.1); SODIUM 129 MMOL/L (135-145); TOTAL CARBON DIOXIDE 30.8 MMOL/L (24-32); TOTAL PROTEIN 7.7 G/DL (6.4-8.2); eCRCL 41 ML/MIN; eGFR 52 ML/MIN
[2024-06-09 20:24] LABS: BILIRUBIN,DIRECT 0.2 MG/DL (0-0.3); MAGNESIUM 1.9 MG/DL (1.5-2.4)
[2024-06-09] MEDS: normal saline 1000ml 1,000 ML IV ONE (21:25)
[2024-06-09] MEDS ORDERED: magnesium Cl slow-release 64mg tablet PO PRN (22:00)
[2024-06-09] MEDS ORDERED: magnesium sulf-water 2g/50mL 50 ML IV PRN (22:00)
[2024-06-09] MEDS ORDERED: potassium Cl 40MEQ/1/2NS 520ml 520 ML IV PRN (22:00)
[2024-06-09] MEDS ORDERED: magnesium sulf-water 4G/100mL 100 ML IV PRN (22:00)
[2024-06-09] MEDS ORDERED: ondansetron/PF 4mg/2ml inj IV PRN (22:00)
[2024-06-09] MEDS ORDERED: mag hydrox/Alum hydrox/simeth 30ml oral suspension PEG PRN (22:00)
[2024-06-09] MEDS ORDERED: magnesium hydroxide 30ml (MOM) UD suspension PEG PRN (22:00)
[2024-06-09] MEDS ORDERED: potassium Cl 20 mEq SR tablet PO PRN ×2 (22:00)
[2024-06-09] MEDS ORDERED: morphine 2 MG/ML inj. syringe IV PRN ×2 (22:00)
[2024-06-09] MEDS: hydrALAZINE 20mg/ml inj. IV ONE (22:43)
[2024-06-09 23:15] VITALS: BP 156/79; PULSE 89; RESP 19; TEMP 98.8; O2SAT 89
[2024-06-10] VITALS (11 sets, daily range): BP systolic 95–166; BP diastolic 53–91; PULSE 78–88; RESP 16–24; TEMP 97.5–99.7; O2SAT 93–98
[2024-06-10] MEDS: normal saline 1000ml 1,000 ML IV SCH (01:32)
[2024-06-10] MEDS: hydrALAZINE 20mg/ml inj. IV SCH (01:35)
[2024-06-10] MEDS ORDERED: albuterol 2.5 MG/3 ML nebule NEB PRN ×2 (02:20→02:45)
[2024-06-10] MEDS ORDERED: ipratropium/albuterol 3ml nebule NEB PRN (02:45)
[2024-06-10] MEDS: azithromycin/NS 500mg/250ml 250 ML IV SCH (05:04)
[2024-06-10] MEDS ORDERED: ipratropium/albuterol 3ml nebule NEB SCH (06:25)
[2024-06-10] MEDS: methylPREDNISolone sod succ 125mg/2ml vial IV ONE (06:30)
[2024-06-10 07:59] LABS: BASOPHILS % (AUTO) 0.4 % (0-1); EOSINOPHILS % (AUTO) 0.2 % (0-6); HEMATOCRIT 29.5 % (42.0-52.0); HEMOGLOBIN 10.3 g/dl (14.0-17.9); LYMPHOCYTES # (AUTO) 0.3 X10'3 (1.1-4.8); LYMPHOCYTES % (AUTO) 6.2 % (21-51); MEAN CORPUSCULAR HEMOGLOBIN 34.9 PG (27.0-31.0); MEAN CORPUSCULAR HGB CONC 34.8 g/dL (33.0-36.5); MEAN CORPUSCULAR VOLUME 100.1 FL (78-98); MEAN PLATELET VOLUME 8.6 FL (7.4-10.4); MONOCYTES # (AUTO) 0.2 X10'3 (0-0.9); MONOCYTES % (AUTO) 4.4 % (2-12); NEUTROPHILS % (AUTO) 88.8 % (42-75); PLATELET COUNT 76 X10'3 (140-440); RED BLOOD COUNT 2.94 X10'6 (4.70-6.10); WHITE BLOOD COUNT 5.6 X10'3 (4.5-11.0)
[2024-06-10] MEDS: docusate sod 100mg capsule PO SCH (08:00)
[2024-06-10] MEDS: K and/or MAG REPLACEMENT MC SCH (08:00)
[2024-06-10 08:27] LABS: ALANINE AMINOTRANSFERASE 12 U/L (12-78); ALBUMIN 2.7 G/DL (3.4-5.0); ALBUMIN/GLOBULIN RATIO 0.8 (1.1-1.5); ALKALINE PHOSPHATASE 55 IU/L (46-116); ANION GAP 5 (8-16); ASPARTATE AMINO TRANSFERASE 19 U/L (10-37); BILIRUBIN,TOTAL 0.7 MG/DL (0.1-1.0); BLOOD UREA NITROGEN 37 MG/DL (7-18); BUN/CREATININE RATIO 34.9 (10.0-20.0); CALCIUM 8.9 MG/DL (8.5-10.1); CHLORIDE 98 MMOL/L (99-107); CREATININE 1.06 MG/DL (0.60-1.10); GLUCOSE 76 MG/DL (70-104); MAGNESIUM 2.6 MG/DL (1.5-2.4); POTASSIUM 4.5 MMOL/L (3.5-5.1); SODIUM 133 MMOL/L (135-145); TOTAL CARBON DIOXIDE 29.9 MMOL/L (24-32); TOTAL PROTEIN 6.2 G/DL (6.4-8.2); eCRCL 51 ML/MIN; eGFR 66 ML/MIN
[2024-06-10] MEDS: ipratropium/albuterol 3ml nebule NEB SCH (11:00)
[2024-06-10] MEDS ORDERED: LEVO112T52 PO (11:44)
[2024-06-10] MEDS ORDERED: LIOT5TAB10 PO (11:44)
[2024-06-10] MEDS ORDERED: methylPREDNISolone sod succ/PF 40mg inj. IV SCH (14:00)
[2024-06-10] MEDS ORDERED: POTASSIUM CHLORIDE 20 MEQ/15 ML oral solution PEG PRN ×2 (14:37→14:38)
[2024-06-10] MEDS ORDERED: oxymetazoline 15 ML nasal spray NS PRN (15:25)
[2024-06-10] MEDS: docusate sodium 100mg/10ml UD cup PEG SCH (20:00)
[2024-06-10] MEDS ORDERED: CefTRIAXone/D5W-Rocephin 1gm 50 ML IV SCH (20:00)
[2024-06-10] MEDS: normal saline 500ml IV soln 500 ML IV ONE (20:19)
[2024-06-10] MEDS: acetaminophen 325mg tablet PEG PRN (23:04)
[2024-06-10 23:20] LABS: BILIRUBIN,URINE NEGATIVE (Neg); CLARITY,URINE CLEAR (Clear); COLOR,URINE YELLOW (Yellow); GLUCOSE, URINE NEGATIVE (Neg); KETONES,URINE NEGATIVE (Neg); LEUKOCYTE ESTERASE ,URINE NEGATIVE (Neg); NITRITES, URINE NEGATIVE (Neg); OCCULT BLOOD,URINE NEGATIVE (Neg); PH,URINE 5.5 (4.8-8.0); PROTEIN,URINE NEGATIVE (Neg); UROBILINOGEN,URINE 0.2 E.U/dL (0.2-1.0)
[2024-06-10 23:28] LABS: UA COLLECTION TYPE NON-SPECIFIED
[2024-06-10 23:49] LABS: TOTAL PROTEIN,URINE RANDOM 26.6 MG/DL
[2024-06-10 23:51] LABS: UA EOSINOPHILS NO EOS /HPF
[2024-06-11] VITALS (9 sets, daily range): BP systolic 93–153; BP diastolic 46–88; PULSE 76–88; RESP 16–24; TEMP 97.3–98.4; O2SAT 90–95
[2024-06-11 00:04] LABS: OSMOLALITY UA 472.5 MOSM/K (50-1400)
[2024-06-11 07:38] LABS: BASOPHILS % (AUTO) 0.2 % (0-1); EOSINOPHILS # (AUTO) 0.1 X10'3 (0-0.9); EOSINOPHILS % (AUTO) 1.4 % (0-6); HEMATOCRIT 25.9 % (42.0-52.0); HEMOGLOBIN 8.9 g/dl (14.0-17.9); LYMPHOCYTES # (AUTO) 0.4 X10'3 (1.1-4.8); LYMPHOCYTES % (AUTO) 5.3 % (21-51); MEAN CORPUSCULAR HEMOGLOBIN 34.8 PG (27.0-31.0); MEAN CORPUSCULAR HGB CONC 34.3 g/dL (33.0-36.5); MEAN CORPUSCULAR VOLUME 101.6 FL (78-98); MONOCYTES # (AUTO) 0.3 X10'3 (0-0.9); MONOCYTES % (AUTO) 4.6 % (2-12); NEUTROPHILS # (AUTO) 6.1 X10'3 (1.8-7.7); NEUTROPHILS % (AUTO) 88.5 % (42-75); PLATELET COUNT 76 X10'3 (140-440); RED BLOOD COUNT 2.55 X10'6 (4.70-6.10); RED CELL DISTRIBUTION WIDTH 12.6 % (11.5-14.5); WHITE BLOOD COUNT 6.9 X10'3 (4.5-11.0)
[2024-06-11 07:57] LABS: INR 1.2 INR; PROTHROMBIN TIME 12.8 SECONDS (9.0-12.0)
[2024-06-11 08:14] LABS: TOTAL CARBON DIOXIDE 30.6 MMOL/L (24-32)
[2024-06-11 08:20] LABS: ALANINE AMINOTRANSFERASE 12 U/L (12-78); ALBUMIN 2.4 G/DL (3.4-5.0); ALBUMIN/GLOBULIN RATIO 0.8 (1.1-1.5); ALKALINE PHOSPHATASE 52 IU/L (46-116); ANION GAP 2 (8-16); ASPARTATE AMINO TRANSFERASE 12 U/L (10-37); BILIRUBIN,TOTAL 0.5 MG/DL (0.1-1.0); BLOOD UREA NITROGEN 36 MG/DL (7-18); BUN/CREATININE RATIO 38.3 (10.0-20.0); CALCIUM 8.7 MG/DL (8.5-10.1); CHLORIDE 103 MMOL/L (99-107); CREATININE 0.94 MG/DL (0.60-1.10); GLUCOSE 83 MG/DL (70-104); MAGNESIUM 1.7 MG/DL (1.5-2.4); POTASSIUM 4.3 MMOL/L (3.5-5.1); PREALBUMIN 11.1 MG/DL (19-36); SODIUM 136 MMOL/L (135-145); TOTAL PROTEIN 5.6 G/DL (6.4-8.2); eCRCL 57 ML/MIN; eGFR 76 ML/MIN
[2024-06-11 13:22] LABS: % IRON SATURATION 5 % (11-46); IRON 9 UG/DL (53-167); TOTAL IRON BINDING CAPACITY 198 UG/DL (259-388)
[2024-06-11 13:35] LABS: FERRITIN 255 NG/ML (26-388)
[2024-06-11] MEDS: LIDOcaine 5% patch TP ONE (14:11)
[2024-06-11] MEDS: levoFLOXACIN-Levaquin 750MG/D5 150 ML IV SCH (20:06)
[2024-06-12] VITALS (14 sets, daily range): BP systolic 123–171; BP diastolic 73–107; PULSE 76–94; RESP 14–23; TEMP 97.2–98.2; O2SAT 92–98
[2024-06-12 06:28] LABS: ALANINE AMINOTRANSFERASE 12 U/L (12-78); ALBUMIN 2.4 G/DL (3.4-5.0); ALBUMIN/GLOBULIN RATIO 0.6 (1.1-1.5); ALKALINE PHOSPHATASE 88 IU/L (46-116); ANION GAP 3 (8-16); ASPARTATE AMINO TRANSFERASE 20 U/L (10-37); BILIRUBIN,TOTAL 0.6 MG/DL (0.1-1.0); BLOOD UREA NITROGEN 29 MG/DL (7-18); BUN/CREATININE RATIO 34.9 (10.0-20.0); CHLORIDE 101 MMOL/L (99-107); CREATININE 0.83 MG/DL (0.60-1.10); GLUCOSE 92 MG/DL (70-104); MAGNESIUM 1.5 MG/DL (1.5-2.4); POTASSIUM 4.3 MMOL/L (3.5-5.1); SODIUM 134 MMOL/L (135-145); TOTAL CARBON DIOXIDE 30.1 MMOL/L (24-32); TOTAL PROTEIN 6.1 G/DL (6.4-8.2); eCRCL 72 ML/MIN; eGFR 88 ML/MIN
[2024-06-12 07:11] LABS: BASOPHILS % (AUTO) 0.1 % (0-1); EOSINOPHILS # (AUTO) 0.1 X10'3 (0-0.9); EOSINOPHILS % (AUTO) 1.4 % (0-6); HEMATOCRIT 29.1 % (42.0-52.0); HEMOGLOBIN 10.3 g/dl (14.0-17.9); LYMPHOCYTES # (AUTO) 0.5 X10'3 (1.1-4.8); LYMPHOCYTES % (AUTO) 5.1 % (21-51); MEAN CORPUSCULAR HEMOGLOBIN 35.3 PG (27.0-31.0); MEAN CORPUSCULAR HGB CONC 35.3 g/dL (33.0-36.5); MEAN CORPUSCULAR VOLUME 100.2 FL (78-98); MEAN PLATELET VOLUME 8.5 FL (7.4-10.4); MONOCYTES # (AUTO) 0.4 X10'3 (0-0.9); MONOCYTES % (AUTO) 4.8 % (2-12); NEUTROPHILS % (AUTO) 88.6 % (42-75); PLATELET COUNT 99 X10'3 (140-440); RED CELL DISTRIBUTION WIDTH 12.9 % (11.5-14.5)
[2024-06-12] MEDS ORDERED: diatrozoate meglu/diatrozoate sod (37% iodine) 120ML oral solution PO ONE (14:05)
[2024-06-12] MEDS: diatr meglu/diatrizoate 30ml oral sol.-(3 dose) bottle PEG ONE (14:33)
[2024-06-12] MEDS: methylPREDNISolone sod succ/PF 40mg inj. IV SCH (19:51)
[2024-06-12] MEDS ORDERED: ipratropium/albuterol 3ml nebule NEB PRN (20:50)
[2024-06-13 02:00] VITALS: BP 129/81; PULSE 78; RESP 18; TEMP 97.6; O2SAT 90
[2024-06-13] MEDS: bacitracin 15gm ointment TP ONE (02:43)
[2024-06-13 06:00] VITALS: BP 115/67; PULSE 56; RESP 14; TEMP 97.2; O2SAT 96
[2024-06-13 06:25] LABS: BASOPHILS % (AUTO) 0.1 % (0-1); EOSINOPHILS % (AUTO) 0 % (0-6); HEMATOCRIT 32.9 % (42.0-52.0); HEMOGLOBIN 11.6 g/dl (14.0-17.9); LYMPHOCYTES # (AUTO) 0.3 X10'3 (1.1-4.8); LYMPHOCYTES % (AUTO) 7.7 % (21-51); MEAN CORPUSCULAR HEMOGLOBIN 35.5 PG (27.0-31.0); MEAN CORPUSCULAR HGB CONC 35.3 g/dL (33.0-36.5); MEAN CORPUSCULAR VOLUME 100.6 FL (78-98); MEAN PLATELET VOLUME 8.9 FL (7.4-10.4); MONOCYTES % (AUTO) 1.1 % (2-12); NEUTROPHILS # (AUTO) 3.3 X10'3 (1.8-7.7); NEUTROPHILS % (AUTO) 91.1 % (42-75); PLATELET COUNT 112 X10'3 (140-440); RED BLOOD COUNT 3.28 X10'6 (4.70-6.10); RED CELL DISTRIBUTION WIDTH 12.8 % (11.5-14.5); WHITE BLOOD COUNT 3.7 X10'3 (4.5-11.0)
[2024-06-13 06:45] LABS: ALANINE AMINOTRANSFERASE 14 U/L (12-78); ALBUMIN 2.6 G/DL (3.4-5.0); ALBUMIN/GLOBULIN RATIO 0.6 (1.1-1.5); ALKALINE PHOSPHATASE 68 IU/L (46-116); ANION GAP 7 (8-16); ASPARTATE AMINO TRANSFERASE 16 U/L (10-37); BILIRUBIN,TOTAL 0.5 MG/DL (0.1-1.0); BLOOD UREA NITROGEN 34 MG/DL (7-18); CALCIUM 9.3 MG/DL (8.5-10.1); CHLORIDE 96 MMOL/L (99-107); GLUCOSE 208 MG/DL (70-104); MAGNESIUM 1.7 MG/DL (1.5-2.4); POTASSIUM 4.4 MMOL/L (3.5-5.1); SODIUM 132 MMOL/L (135-145); TOTAL CARBON DIOXIDE 28.7 MMOL/L (24-32); TOTAL PROTEIN 6.7 G/DL (6.4-8.2); eCRCL 60 ML/MIN; eGFR 71 ML/MIN
[2024-06-13 11:00] VITALS: BP 162/94; PULSE 80; RESP 15; TEMP 97.4; O2SAT 96
[2024-06-13] MEDS ORDERED: LEVO750T68 PO (11:15)
[2024-06-13] MEDS ORDERED: PRED50TA PO (11:16)
[2024-06-13 13:40] VITALS: BP 139/85; PULSE 78; RESP 16
== END 2024-06-13 15:20 | disposition home health service (06) | DRG 871 ==
LOC: ER 19:39 → ED HOLD 22:11 → PCU 3S 23:10
PROVIDERS: ADMIT Internal Medicine Pulmonary Disease; ATTEND Family Medicine
PROC: 0D20XUZ Change Feeding Device in Upper Intestinal Tract, External Approach (ICD-10-PCS; principal; 2024-06-12)
DX: A41.9 Sepsis, unspecified organism (principal); E43 Unspecified severe protein-calorie malnutrition; J69.0 Pneumonitis due to inhalation of food and vomit; N17.0 Acute kidney failure with tubular necrosis; J18.9 Pneumonia, unspecified organism; E87.1 Hypo-osmolality and hyponatremia; Z68.1 Body mass index [BMI] 19.9 or less, adult; T85.598A Other mechanical complication of other gastrointestinal prosthetic devices, implants and grafts, initial encounter; I16.0 Hypertensive urgency; D53.9 Nutritional anemia, unspecified; Z20.822 Contact with and (suspected) exposure to COVID-19; G20.A1 Parkinson's disease without dyskinesia, without mention of fluctuations; F02.80 Dementia in other diseases classified elsewhere, unspecified severity, without behavioral disturbance, psychotic disturbance, mood disturbance, and anxiety; I50.9 Heart failure, unspecified; I25.10 Atherosclerotic heart disease of native coronary artery without angina pectoris; N40.0 Benign prostatic hyperplasia without lower urinary tract symptoms; I12.9 Hypertensive chronic kidney disease with stage 1 through stage 4 chronic kidney disease, or unspecified chronic kidney disease; N18.9 Chronic kidney disease, unspecified; Z90.49 Acquired absence of other specified parts of digestive tract; Z87.891 Personal history of nicotine dependence; Z88.8 Allergy status to other drugs, medicaments and biological substances
CPT/HCPCS: 36415; 71045; 74018; 80048; 80053; 80076; 81003; 82570; 82728; 83540; 83550; 83605; 83735; 83930; 83935; 84134; 84145; 84156; 84300; 84484; 85025; 85610; 87040; 87081; 87207; 87502; 87503; 87811; 92508; 92616; 93005; 94760; 99202; 99285; A4624; A6213; A6402; A6590; B4087; G0378; J0360; J0456; J0696; J1956; J2919; J7030; J7040

== ENCOUNTER 2025-04-10 11:25 | Emergency (ER) | payer MEDICARE ==
[~2025-04-10 11:25] MED LIST changes: -CARV-164 PEG; +LEVO112T52 PO; +LIOT5TAB10 PO; -NO HOME MEDS
[2025-04-10 12:37] LABS: MEAN PLATELET VOLUME 8.9 FL (7.4-10.4); RED CELL DISTRIBUTION WIDTH 15.1 % (11.5-14.5)
[2025-04-10 12:44] LABS: CREATININE 1.16 MG/DL (0.60-1.10); TOTAL CARBON DIOXIDE 30.7 MMOL/L (24-32); eGFR 60 ML/MIN
[2025-04-10 14:53] LABS: LEUKOCYTE ESTERASE ,URINE NEGATIVE (Neg); NITRITES, URINE NEGATIVE (Neg); OCCULT BLOOD,URINE NEGATIVE (Neg)
[2025-04-10 14:54] LABS: UA COLLECTION TYPE URINAL
[2025-04-10 14:56] VITALS: TEMP 98.2
--- NOTE | 2025-04-10 16:17 | Physician Documentation ---
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 Patient initially came in today presenting with hyponatremia found by primary care provider and weakness. Patient states he is actually feeling much better right now denies any weakness or chest pain or shortness of breath or abdominal pain or nausea, vomiting, diarrhea. Patient states he wants to go home. Patient has no other concern or complaint at this time. Patient states he was taken off all blood pressure medications by his motorcycle repairer two years ago because of labile blood pressure and hypotensive episodes. 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*, Dementia, Parkinson's Disease, Coronary Artery Disease, Heart Valve Disease, Hypertension, BPH, Chronic Kidney Disease, Thyroid (unspecified), *CANCER* Past Surgical History: noncontributory Alcohol Use: None Drug Use: none Lives with: Spouse Lives In: Home Occupation: retired Review of Systems Constitutional: Denies: chills, fever, weakness Eyes: Denies: pain, blurred vision ENT: Denies: ear pain, nose pain, throat pain, mouth pain Respiratory: Denies: cough, shortness of breath Cardiovascular: Denies: chest pain, palpitations Gastrointestinal: Denies: abdominal pain, nausea, vomiting Genitourinary: Denies: burning, dysuria Male Genitalia: Denies: penile discharge, testicular pain Neurological: Denies: headache, dizziness Musculoskeletal: Denies: pain, swelling Integumentary: Denies: rash, lesions Allergic/Immunologic: Denies: hives, itching Hematologic/Lymphatic: Denies: no symptoms reported Psychiatric: Denies: depression, anxiety Physical Exam Vital Signs: Temperature: 98.2, Source: Oral, Heart Rate: 79, Respiratory Rate: 20, BP: 186/99, Pulse Oximetry: 98 Oxygen Flow Rate: 2.0 Physical Exam General: Awake and Alert, no acute distress. HEENT: Conjunctiva pink, Sclera clear, Mucus Membranes moist. Neck: Supple without masses and tenderness. Resp: Unlabored. Lungs clear to auscultation bilaterally. Heart: Regular Rate and rhythm, normal S1 and S2 without murmur, rub or gallop. Abdomen: Soft and non tender no organomegaly Extremities: No cyanosis,clubbing or edema. Skin: Warm and Dry. Progress Results/Orders Results/Orders Completed Orders - MARCO ANTONIO ZALDIVAR Clonidine Tablet (Catapres Tablet) (04/10/25 16:16) Medications Received in ER Medications (Trade) Dose Ordered Sig/Juan Route PRN Reason Start Time Stop Time Status Last Admin Dose Admin (Catapres tablet) 0.1 mg ONCE STAT PO 04/10/25 16:16 04/10/25 16:20 DC 04/10/25 16:37 0.1 MG Vital Signs 04/10/25 04/10/25 04/10/25 04/10/25 11:39 14:52 14:56 15:15 Temp 97.8 98.2 Pulse 80 79 73 Resp 16 19 17 16 B/P (MAP) 188/114 181/90 (120) 181/99 (126) Pulse Ox 96 96 98 O2 Flow Rate 2.0 2.0 04/10/25 04/10/25 15:18 16:54 Pulse 79 76 Resp 20 18 B/P (MAP) 186/99 (128) 181/84 (116) Pulse Ox 98 98 O2 Flow Rate 2.0 2.0 Laboratory Tests Test 04/10/25 12:18 04/10/25 14:48 White Blood Count 6.7 Red Blood Count 3.83 L Hemoglobin 12.2 L Hematocrit 35.9 L Mean Corpuscular Volume 93.8 Mean Corpuscular Hemoglobin 31.8 H Mean Corpuscular Hemoglobin Concent 33.9 Red Cell Distribution Width 15.1 H Platelet Count 154 Mean Platelet Volume 8.9 Neutrophils (%) (Auto) 79.6 H Lymphocytes (%) (Auto) 10.0 L Monocytes (%) (Auto) 6.3 Eosinophils (%) (Auto) 3.3 Basophils (%) (Auto) 0.8 Neutrophils # (Auto) 5.4 Lymphocytes # (Auto) 0.7 L Monocytes # (Auto) 0.4 Eosinophils # (Auto) 0.2 Basophils # (Auto) 0.1 CBC Comment Sodium Level 137 Potassium Level 4.8 Chloride Level 101 Carbon Dioxide Level 30.7 Anion Gap 5 L Blood Urea Nitrogen 44 H Creatinine 1.16 H Estimated GFR/1.73 m2 60 BUN/Creatinine Ratio 37.9 H Glucose Level 97 Calcium Level 9.4 Total Bilirubin 0.4 Aspartate Amino Transf (AST/SGOT) 21 Alanine Aminotransferase (ALT/SGPT) 20 Alkaline Phosphatase 83 Total Protein 8.8 H Albumin 3.3 L Globulin 5.5 H Albumin/Globulin Ratio 0.6 L Chemistry Comments Urine Specimen Description Urinal Urine Color Yellow Urine Clarity Clear Urine pH 6.0 Urine Specific [place] 1.015 Urine Protein Negative Urine Glucose (UA) Negative Urine Ketones Negative Urine Occult Blood Negative Urine Nitrite Negative Urine Bilirubin Negative Urine Urobilinogen 0.2 Urine Leukocyte Esterase Negative Urine Culture Indicated Not ind Volume Urine Centrifuged 10 ml Urine Comment Medical Decision Making Additional information obtaine: N/A Findings Patient is seen today with his significant other with very complicated past medical history significant for 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 Patient initially came in today presenting with hyponatremia found by primary care provider and weakness. Patient states he is actually feeling much better right now denies any weakness or chest pain or shortness of breath or abdominal pain or nausea, vomiting, diarrhea. Patient states he wants to go home. Patient has no other concern or complaint at this time. Patient states he was taken off all blood pressure medications by his motorcycle repairer two years ago angle [place] of labile blood pressure and hypotensive episodes. Patient declined hospital admission today. Patient's labs are reassuring and hyponatremia has resolved with sodium level now at 137. Patient will continue close follow up with Oncology and primary care. Patient will follow up with primary care in 5-10 days if no better as needed sooner. Return to ED with any worsening, concerning or changing symptoms. Differential Dx:Considerations: Include: anemia, dehydration, dysrhythmia Departure Disposition: HOME / SELF CARE / HOMELESS Impression: Primary Impression: Anemia Qualified Codes: D64.9 - Anemia, unspecified Additional Impressions: Hyponatremia HTN (hypertension) Qualified Codes: I10 - Essential (primary) hypertension Condition: Stable Discharge Instructions: Hyponatremia, [id number] Additional Instructions: Patient declined hospital admission today. Patient's labs are reassuring and hyponatremia has resolved with sodium level now at 137. Patient will continue close follow up with Oncology and primary care. Patient will follow up with primary care in 5-10 days if no better as needed sooner. Return to ED with any worsening, concerning or changing symptoms. Referrals: NO PRIMARY CARE PROVIDER (PCP) Additional Comment Additional Comment Patient was offered admission but declined. Signature Scribe Signature: No scribe Attestation: No scribe MARCO ANTONIO ZALDIVAR PAC Apr 10, 2025 16:17
[2025-04-10 17:29] VITALS: BP 149/89; PULSE 78; RESP 18; O2SAT 97
== END 2025-04-10 17:32 | disposition home or self-care (01) ==
LOC: ER 11:26
DX: D64.9 Anemia, unspecified (principal); E87.1 Hypo-osmolality and hyponatremia; I12.9 Hypertensive chronic kidney disease with stage 1 through stage 4 chronic kidney disease, or unspecified chronic kidney disease; N18.9 Chronic kidney disease, unspecified; I25.10 Atherosclerotic heart disease of native coronary artery without angina pectoris; Z85.850 Personal history of malignant neoplasm of thyroid; Z88.8 Allergy status to other drugs, medicaments and biological substances; Z79.899 Other long term (current) drug therapy
CPT/HCPCS: 36415; 80053; 81003; 85025; 99285; A6250